=== PATIENT | female | born 1995 ===

== ENCOUNTER → 2019-09-25 | Outpatient (CLI) | payer BC ==
[2019-09-25 15:56] LABS: Adenovirus F 40/41 Not Detected (NOT DETECT); Astrovirus Not Detected (NOT DETECT); Campylobacter Sp Not Detected (NOT DETECT); Cryptosporidium Detected (NOT DETECT); Cyclospora Cayetanensis Not Detected (NOT DETECT); E. Coli O157 Not Detected (NOT DETECT); Entamoeba Histolytica Not Detected (NOT DETECT); Enteroaggregative E. coli-EAEC Not Detected (NOT DETECT); Enteropathogenic E. coli-EPEC Detected (NOT DETECT); Enterotoxigenic E. coli-ETEC Not Detected (NOT DETECT); Giardia Lamblia Not Detected (NOT DETECT); Norovirus GI/GII Not Detected (NOT DETECT); Plesiomonas Shigelloides Not Detected (NOT DETECT); Rotavirus A Not Detected (NOT DETECT); Salmonella Sp Not Detected (NOT DETECT); Sapovirus Not Detected (NOT DETECT); Shiga Toxin-prod E. coli-STEC Not Detected (NOT DETECT); Shigella/Enteroin E. coli-EIEC Not Detected (NOT DETECT); Vibrio Cholerae Not Detected (NOT DETECT); Vibrio Sp Not Detected (NOT DETECT); Yersinia Enterocolitica Not Detected (NOT DETECT)
== END | disposition home or self-care (01) ==
LOC: LAB 13:50 → LAB SHORT 13:50
PROVIDERS: Physician Assistant
DX: R19.7 Diarrhea, unspecified (principal)
CPT/HCPCS: 0097U